=== PATIENT | female | born 2005 | race Caucasian/White ===

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

== ENCOUNTER → 2024-12-04 | Outpatient (REF) | payer BC | LOC: M SFHCWAGY 10:13 | PROVIDERS: ATTEND Nurse Practitioner Family | DX: Z12.4 Encounter for screening for malignant neoplasm of cervix (principal) ==